=== PATIENT | female | born 1990 | race Caucasian/White ===

== ENCOUNTER → 2018-04-22 | Outpatient (CLI) | payer MEDICAID | END | disposition home or self-care (01) | LOC: U/S 09:00 | DX: O26.849 Uterine size-date discrepancy, unspecified trimester (principal); Z3A.00 Weeks of gestation of pregnancy not specified | CPT/HCPCS: 76801 ==

== ENCOUNTER 2018-09-26 12:30 | Outpatient (CLI) | payer MEDICAID ==
[2018-09-26 14:04] LABS: ADD UMIC NO; UR ASCORBIC ACID NEGATIVE (NEGATIVE); UR BILIRUBIN (Dip) NEGATIVE (NEGATIVE); UR BLOOD (Dip) NEGATIVE (NEGATIVE); UR CLARITY CLEAR (CLEAR); UR COLOR YELLOW (YELLOW); UR GLUCOSE (Dip) 1+ mg/dL (NEGATIVE); UR KETONES (Dip) NEGATIVE (NEGATIVE); UR LEUKOCYTE ESTERASE (Dip) NEGATIVE Leu/ul (NEGATIVE); UR NITRITE (Dip) NEGATIVE (NEGATIVE); UR SPECIFIC GRAVITY (Dip) 1.018 (1.003-1.030); UR TOTAL PROTEIN (Dip) NEGATIVE (NEGATIVE); UR UROBILINOGEN (Dip) NEGATIVE (NEGATIVE)
== END 2018-09-26 16:06 | disposition home or self-care (01) ==
LOC: OBT 12:30 → L-D 12:30 → OBT 16:06
DX: O36.8130 Decreased fetal movements, third trimester, not applicable or unspecified (principal); Z3A.32 32 weeks gestation of pregnancy
CPT/HCPCS: 76817; 76818; 81003; 87086

== ENCOUNTER 2018-10-15 23:09 | Outpatient (CLI) | payer MEDICAID ==
[2018-10-16 00:35] LABS: ADD UMIC NO; UR ASCORBIC ACID NEGATIVE (NEGATIVE); UR BILIRUBIN (Dip) NEGATIVE (NEGATIVE); UR BLOOD (Dip) NEGATIVE (NEGATIVE); UR CLARITY CLEAR (CLEAR); UR COLOR STRAW (YELLOW); UR GLUCOSE (Dip) 1+ mg/dL (NEGATIVE); UR KETONES (Dip) NEGATIVE (NEGATIVE); UR LEUKOCYTE ESTERASE (Dip) NEGATIVE Leu/ul (NEGATIVE); UR NITRITE (Dip) NEGATIVE (NEGATIVE); UR SPECIFIC GRAVITY (Dip) 1.006 (1.003-1.030); UR TOTAL PROTEIN (Dip) NEGATIVE (NEGATIVE); UR UROBILINOGEN (Dip) NEGATIVE (NEGATIVE)
== END 2018-10-16 00:57 | disposition home or self-care (01) ==
LOC: OBT 23:09 → L-D 23:10
DX: O36.8130 Decreased fetal movements, third trimester, not applicable or unspecified (principal); Z3A.34 34 weeks gestation of pregnancy
CPT/HCPCS: 76815; 76818; 81003; 87086

== ENCOUNTER 2018-11-14 14:25 | Inpatient (IN) | payer MEDICAID ==
[2018-11-14] MEDS: LACTATED RINGER'S 1,000 ML IV ×3 (14:59→22:45)
[2018-11-14] MEDS ORDERED: OXYTOCIN 30 UNITS/LR 500 ML IV ×2 (15:00→20:30)
[2018-11-14] MEDS ORDERED: METHYLERGONOVINE 0.2 MG INJ IM ×2 (15:00→20:30)
[2018-11-14] MEDS ORDERED: CARBOPROST 250 MCG INJ IM ×2 (15:00→20:30)
[2018-11-14] MEDS ORDERED: MISOPROSTOL 200 MCG TAB PR ×2 (15:00→20:30)
[2018-11-14 15:18] LABS: ADD MAN DIFF? NO
[2018-11-14 15:20] LABS: WHITE BLOOD COUNT 8.4 10^3/ul (4.8-10.8)
[2018-11-14 15:20] LABS: BASOPHILS % 0.4 % (0.0-2.0); EOSINOPHILS # 0.1 10^3/ul (0.0-0.5); EOSINOPHILS % 0.6 % (0.0-7.0); HEMATOCRIT 40.7 % (37.0-47.0); HEMOGLOBIN 13.7 g/dl (12.0-16.0); LYMPHOCYTES # 1.6 10^3/ul (0.8-2.9); LYMPHOCYTES % 19.3 % (15.0-51.0); MEAN CORPUSCULAR HEMOGLOBIN 29.5 pg (29.0-33.0); MEAN CORPUSCULAR HGB CONC 33.7 g/dl (32.0-37.0); MEAN CORPUSCULAR VOLUME 87.5 fl (82.0-101.0); MEAN PLATELET VOLUME 10.8 fl (7.4-10.4); MONOCYTE # 0.6 10^3/ul (0.3-0.9); MONOCYTES % 7.2 % (0.0-11.0); NEUTROPHIL # 5.9 10^3/ul (1.6-7.5); NEUTROPHILS % 70.6 % (39.0-77.0); PLATELET COUNT 237 10^3/UL (140-415); RED BLOOD COUNT 4.65 10^6/ul (4.20-5.40); RED CELL DISTRIBUTION WIDTH 13.9 % (11.5-14.5)
[2018-11-14 15:41] LABS: INR 0.91; PROTIME 12.4 Sec (11.9-14.9)
[2018-11-14 15:42] LABS: PARTIAL THROMBOPLASTIN TIME 27.7 Sec (23.0-35.0)
[2018-11-14] MEDS ORDERED: PHENYLephrine (100 MCG/ML) 10ML SYG (16:04)
[2018-11-14] MEDS ORDERED: morphine SULFATE/PF (10 MG/10 ML) INJ (16:04)
[2018-11-14] MEDS ORDERED: MIDAZOLAM 1 MG/ML 2 ML INJ (16:04)
[2018-11-14] MEDS ORDERED: FAMOTIDINE 20 MG INJ (16:25)
[2018-11-14] MEDS ORDERED: DEXAMETHASONE 4 MG/ML 1 ML INJ (16:25)
[2018-11-14] MEDS ORDERED: ONDANSETRON 4 MG INJ (16:25)
[2018-11-14] MEDS ORDERED: NALOXONE (0.4 MG/ML) INJ IV (17:00)
[2018-11-14] MEDS ORDERED: DIPHENHYDRAMINE 50 MG INJ IV (17:00)
[2018-11-14] MEDS ORDERED: ZOLPIDEM 5 MG TAB PO (17:00)
[2018-11-14] MEDS ORDERED: ONDANSETRON 4 MG INJ IV (17:00)
[2018-11-14] MEDS ORDERED: HYDROmorphONE 0.5 MG/0.5 ML SYG IV ×2 (17:00)
[2018-11-14] MEDS: OXYTOCIN 30 UNITS/LR 500 ML IV (17:57)
[2018-11-14] MEDS: CEFAZOLIN 2 GM/50 ML (PMX) 50 ML IVPB (18:11)
[2018-11-14 19:09] LABS: RAPID PLASMA REAGIN NONREACTIVE (NR)
[2018-11-14] MEDS: AZITHROMYCIN 500MG/NS (PMX) 250 ML IVPB (19:35)
[2018-11-14] MEDS: KETOROLAC 30 MG INJ IV (19:35)
[2018-11-14] MEDS ORDERED: NA PHOSPHATE/BIPHOS 133 ML ENEMA PR (20:30)
[2018-11-14] MEDS ORDERED: LANOLIN HPA 1 PKT TOP (20:30)
[2018-11-14] MEDS ORDERED: CEFAZOLIN 2 GM/50 ML (PMX) 50 ML IVPB (20:30)
[2018-11-14] MEDS: SENNA/DOCUSATE NA (8.6MG/50MG) TAB PO (22:18)
[2018-11-14] MEDS: CEFAZOLIN 2 GM in SOD CHLORIDE 0.9% 50 ML IVPB (23:32)
[2018-11-15] MEDS: CLINDAMYCIN 300 MG CAP PO ×4 (00:02→18:33)
[2018-11-15] MEDS: KETOROLAC 30 MG INJ IV ×2 (05:07→15:59)
[2018-11-15] MEDS: CEFAZOLIN 2 GM in SOD CHLORIDE 0.9% 50 ML IVPB ×2 (06:02→15:20)
[2018-11-15] MEDS: LACTATED RINGER'S 1,000 ML IV ×2 (06:41→15:20)
[2018-11-15] MEDS: SENNA/DOCUSATE NA (8.6MG/50MG) TAB PO ×2 (09:44→21:02)
[2018-11-15] MEDS: BISACODYL 10 MG SUPP PR (11:00)
[2018-11-15 11:15] LABS: ADD MAN DIFF? NO
[2018-11-15 11:17] LABS: WHITE BLOOD COUNT 10.2 10^3/ul (4.8-10.8)
[2018-11-15 11:17] LABS: BASOPHILS % 0.3 % (0.0-2.0); EOSINOPHILS % 0.4 % (0.0-7.0); HEMOGLOBIN 11.1 g/dl (12.0-16.0); LYMPHOCYTES % 19.5 % (15.0-51.0); MEAN CORPUSCULAR HEMOGLOBIN 29.3 pg (29.0-33.0); MEAN CORPUSCULAR HGB CONC 32.6 g/dl (32.0-37.0); MEAN CORPUSCULAR VOLUME 89.7 fl (82.0-101.0); MONOCYTE # 0.9 10^3/ul (0.3-0.9); NEUTROPHIL # 7.1 10^3/ul (1.6-7.5); NEUTROPHILS % 69.7 % (39.0-77.0); PLATELET COUNT 205 10^3/UL (140-415); RED BLOOD COUNT 3.79 10^6/ul (4.20-5.40); RED CELL DISTRIBUTION WIDTH 14.1 % (11.5-14.5)
[2018-11-15] MEDS: IBUPROFEN 800 MG TAB PO (21:02)
[2018-11-15] MEDS: OXYCODONE/ACETAMINOPHEN (5/325) TAB PO (22:52)
[2018-11-16] MEDS: CLINDAMYCIN 300 MG CAP PO ×4 (00:58→18:11)
[2018-11-16] MEDS: IBUPROFEN 800 MG TAB PO ×3 (05:23→21:43)
[2018-11-16] MEDS: SENNA/DOCUSATE NA (8.6MG/50MG) TAB PO ×2 (09:44→21:43)
[2018-11-16] MEDS: HYDROCODONE/APAP (5/325) TAB PO ×2 (12:22→21:43)
[2018-11-16] MEDS ORDERED: ACETAMINOPHEN 325 MG TAB PO (19:30)
[2018-11-17] MEDS: CLINDAMYCIN 300 MG CAP PO ×3 (01:14→12:29)
[2018-11-17] MEDS: IBUPROFEN 800 MG TAB PO ×2 (05:07→14:29)
[2018-11-17] MEDS: OXYCODONE/ACETAMINOPHEN (5/325) TAB PO (05:07)
[2018-11-17] MEDS: SENNA/DOCUSATE NA (8.6MG/50MG) TAB PO (09:42)
[2018-11-17] MEDS: DIPHTH/TET/ACEL PERTUSS (ADULT) 0.5 ML VIAL IM* (09:43)
[2018-11-17] MEDS: MEASLES,MUMPS,RUBELLA VACCINE INJ SC* (09:43)
== END 2018-11-17 16:46 | disposition home or self-care (01) | DRG 785 ==
LOC: L-D 14:25 → PP1 20:17
PROVIDERS: Obstetrics & Gynecology
PROC: 10D00Z1 Extraction of Products of Conception, Low, Open Approach (ICD-10-PCS; principal; 2018-11-14 15:30)
PROC: 0UL70ZZ Occlusion of Bilateral Fallopian Tubes, Open Approach (ICD-10-PCS; 2018-11-14 15:30)
DX: O65.5 Obstructed labor due to abnormality of maternal pelvic organs (principal); O34.211 Maternal care for low transverse scar from previous cesarean delivery; Z3A.39 39 weeks gestation of pregnancy; Z37.0 Single live birth; Z30.2 Encounter for sterilization
CPT/HCPCS: 85025; 85610; 85730; 86592; 86850; 86900; 86901; 88302; 99464